=== PATIENT | female | born 1960 | race Caucasian/White ===

== ENCOUNTER 2017-04-05 19:12 | Emergency (ER) | payer OTHER ==
[~2017-04-05] VITALS: Ht 154.9 cm; Wt 68.6 kg
[~2017-04-05 19:12] MED LIST: ALLERGY RELIEF10 M5 PO; ALLERGY RELIEF10 MG PO; ATARAX,VISTARIL50 MG PO; BELVIQ10 MG PO; BENADRYL50 MG PO; CALCARB 600 W-1 EACH; CALCIUM 600 +1 EA12 PO; CALCIUM 600 MG1 EACH PO; CETIRIZINE HCL10 M2 PO; COUMADIN3 MG PO; CYCLOBENZAPRINE10 MG PO; CYMBALTA60 MG; CYMBALTA60 MG PO; DESYREL100 MG; DESYREL100 MG PO; DILAUDID2 MG PO; DULOXETINE HCL60 MG PO; ENDOCET 7.5-321 EACH PO; FLEXERIL10 MG PO; GABAPENTIN300 MG PO; HYDROCHLOROTH12.5 M3 PO; HYDROCHLOROTH12.5 MG; IBUPROFEN800 MG PO; LEVOTHYROXINE100 MCG PO; LEVOXYL88 MCG PO; LITHIUM CARBON300 MG PO; LOPRESSOR100 M1 PO; LYRICA150 MG PO; LYRICA75 MG PO; MACROBID100 MG PO; MAXALT10 MG PO; MEDROXYPROGESTE10 MG PO; MEDROXYPROGESTER5 MG PO; MOBIC15 MG PO; MOTRIN800 MG PO; MULTIPLE VITAM1 EAC1 PO; MULTIVITAMIN1 EAC2 PO; MYRBETRIQ50 MG PO; NEURONTIN600 MG PO; NORTRIPTYLINE H25 MG PO; NUCYNTA ER150 MG PO; NYSTATIN15 GM TP; PANTOPRAZOLE SO40 MG PO; PERCOCET 7.51 TABLET PO; PROTONIX40 MG PO; SALINE NASAL SP45 ML BOTH NARES; SLEEP AID50 MG PO; SPRINTEC1 EACH; SPRINTEC1 EACH PO; SYNTHROID100 MCG PO; TOPROL XL100 MG; TREXIMET 85-1 TABLET PO; VERAPAMIL HCL360 MG PO; WOMEN 50 + VIT1 EACH; XARELTO15 MG PO; XARELTO20 MG PO; ZOFRAN4 MG PO
[2017-04-05] MEDS ORDERED: OXYCONTIN10 MG PO (21:16)
[2017-04-05 21:52] VITALS: BP 146/97
== END 2017-04-05 22:19 | disposition home or self-care (01) ==
LOC: EME → EDBD 19:12 → EME 22:19
DX: M54.9 Dorsalgia, unspecified (principal); Z98.890 Other specified postprocedural states; Z98.1 Arthrodesis status; I10 Essential (primary) hypertension; K21.9 Gastro-esophageal reflux disease without esophagitis; E03.9 Hypothyroidism, unspecified; F31.9 Bipolar disorder, unspecified; Z86.711 Personal history of pulmonary embolism
CPT/HCPCS: 72131; 99281; 99284; J2060; J2270